=== PATIENT | female | born 1995 | race Hispanic/Latino ===

== ENCOUNTER 2017-07-17 13:19 | Emergency (ER) | payer BC ==
[2017-07-17 13:30] VITALS: BP 104/71; PULSE 97; RESP 16; TEMP 98.7; O2SAT 98
--- NOTE | 2017-07-17 13:32 | ED PDOC ---
Arrival/HPI - General Chief Complaint: Female Genitourinary Time Seen by Provider: 07/17/17 13:31 Historian: Patient - History of Present Illness Narrative History of Present Illness (Text): 07/17/17 13:31 21 y/o female, no significant pmh, nkda, c/o burning urinary sensation with frequency started yesterday. Pt. is eating and drinking well with no change in appetize,no abdominal or pelvic pain, no flank pain, no nausea or vomiting, no vaginal bleeding or discharge, no recent traveling, no weight loss, no other medical or psychological complaints. Past Medical History - Provider Review Nursing Documentation Reviewed: Yes - Infectious Disease Hx of Infectious Diseases: None - Reproductive Menopause: No - Psychiatric Hx Substance Use: No - Anesthesia Hx Anesthesia: No Family/Social History - Physician Review Nursing Documentation Reviewed: Yes Family/Social History: Unknown Family HX Smoking Status: Unknown If Ever Smoked Hx Alcohol Use: No Hx Substance Use: No Allergies/Home Meds Allergies/Adverse Reactions: Allergies No Known Allergies Allergy (Verified 07/17/17 13:30) Home Medications: Home Meds Medication Instructions Recorded Confirmed No Known Home Med 07/17/17 07/17/17 Review of Systems - Review of Systems Constitutional: absent: Fatigue, Fevers Eyes: absent: Vision Changes ENT: absent: Hearing Changes Respiratory: absent: SOB, Cough Cardiovascular: absent: Chest Pain Gastrointestinal: absent: Abdominal Pain, Nausea, Vomiting Genitourinary Female: Dysuria, Frequency. absent: Hematuria, Urine Output Changes, Vaginal Bleeding, Vaginal Discharge Musculoskeletal: absent: Arthralgias, Back Pain Neurological: absent: Headache, Dizziness Physical Exam Vital Signs Reviewed: Yes Vital Signs Temp Pulse Resp BP Pulse Ox 07/17/17 13:27 98.7 F 97 H 16 104/71 98 Temperature: Afebrile Blood Pressure: Normal Pulse: Regular Respiratory Rate: Normal Appearance: Positive for: Well-Appearing, Non-Toxic, Comfortable Pain Distress: Mild Mental Status: Positive for: Alert and Oriented X 3 - Systems Exam Head: Present: Atraumatic, Normocephalic Pupils: Present: PERRL Extroacular Muscles: Present: EOMI Conjunctiva: Present: Normal Neck: Present: Normal Range of Motion Respiratory/Chest: Present: Clear to Auscultation, Good Air Exchange. No: Respiratory Distress, Accessory Muscle Use Cardiovascular: Present: Regular Rate and Rhythm, Normal S1, S2. No: Murmurs Abdomen: Present: Normal Bowel Sounds. No: Tenderness, Distention, Peritoneal Signs Back: Present: Normal Inspection. No: CVA Tenderness Upper Extremity: Present: Normal Inspection. No: Cyanosis, Edema Lower Extremity: Present: Normal Inspection. No: Edema Neurological: Present: GCS=15, Speech Normal, Motor Func Grossly Intact, Gait Normal, Memory Normal Skin: Present: Warm, Dry, Normal Color. No: Rashes Psychiatric: Present: Alert, Oriented x 3, Normal Insight, Normal Concentration Medical Decision Making ED Course and Treatment: 07/17/17 13:32 -Urine hcg -UA as we waiting for the urine sample 07/17/17 13:54 -Pt. has not provide the urine sample, left the ER with the mother as they say this is taking too long, notified the OUTPATIENT SCHEDULER that they are leaving, didn't wait for the against medical advice paper work or wait for my discussion. -Pt. will be placed as left without completion of treatment as eloped. - PA / [employer] / Resident Statement MD/DO has reviewed & agrees with the documentation as recorded. Disposition/Present on Arrival - Present on Arrival Any Indicators Present on Arrival: No History of DVT/PE: No History of Uncontrolled Diabetes: No Urinary Catheter: No History of Decub. Ulcer: No History Surgical Site Infection Following: None - Disposition Have Diagnosis and Disposition been Completed?: Yes Diagnosis: Urinary symptom or sign, Left before treatment completed Disposition: ELOPEMENT - ER ONLY Disposition Time: 13:56 Patient Plan: Discharge Condition: STABLE Forms: [employer] (German)
== END 2017-07-17 13:56 | disposition left against medical advice (07) ==
LOC: ED 13:19
DX: N39.9 Disorder of urinary system, unspecified (principal)